=== PATIENT | male | born 1965 | race Caucasian/White ===

== ENCOUNTER → 2016-07-30 | Outpatient (CLI) | payer MEDICARE, MEDICAID | END | disposition home or self-care (01) | LOC: GMAB 14:13 | PROVIDERS: ATTEND Family Medicine | DX: Z12.5 Encounter for screening for malignant neoplasm of prostate (principal); I10 Essential (primary) hypertension | CPT/HCPCS: 84443; G0103 ==

== ENCOUNTER → 2017-08-02 | Outpatient (CLI) | payer MEDICARE, MEDICAID | LOC: GMAB 11:46 | PROVIDERS: ATTEND Family Medicine | DX: I10 Essential (primary) hypertension (principal); Z12.5 Encounter for screening for malignant neoplasm of prostate | CPT/HCPCS: 84443; G0103 ==

== ENCOUNTER → 2018-02-11 | Outpatient (CLI) | payer MEDICARE, MEDICAID ==
--- NOTE | 2018-02-11 16:36 | US ---
EXAM DESCRIPTION: Chest: ULTRASOUND. CLINICAL HISTORY: MYALGIA. Patient has VAD. Pain around injection port over since falling. COMPARISON: None Available. TECHNIQUE: Transcutaneous scanning: Tabares-scale and Doppler modes. FINDINGS: Scanning around the injection port of the VAD. No solid mass. Posterior shadowing from the injection port. No large calcifications, parenchymal edema, or distinct cyst or fluid collection. No abnormal vascularity. IMPRESSION: No abnormal soft tissue findings by ultrasound of the tissues around the injection port of the VAD. Electronically signed by: Mina Tadeo MD 02/11/2018 4:34 PM CDT
== END ==
LOC: GMAE 10:05
PROVIDERS: ATTEND Family Medicine
DX: M79.1 Myalgia (principal)

== ENCOUNTER → 2018-08-04 | Outpatient (CLI) | payer MEDICARE, MEDICAID | LOC: GMAE 10:28 | PROVIDERS: ATTEND Family Medicine | DX: I10 Essential (primary) hypertension (principal) ==

== ENCOUNTER → 2019-08-14 | Outpatient (CLI) | payer MEDICARE, MEDICAID | DX: I10 Essential (primary) hypertension (principal) ==